=== PATIENT | female | born 1990 | race Caucasian/White ===

== ENCOUNTER 2018-11-20 16:38 | Emergency (ER) | payer MEDICAID ==
[~2018-11-20] VITALS: Ht 175.3 cm; Wt 78.0 kg
[2018-11-20 16:44] VITALS: BP 127/72
[2018-11-20] MEDS ORDERED: ONDANSETRON HCL 4 MG/5 ML SOLUTION PO ONE (17:30)
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
[2018-11-20] MEDS ORDERED: ONDANSETRON HCL 4 MG/5 ML SOLUTION ONE (17:54)
== END 2018-11-20 18:10 | disposition home or self-care (01) ==
LOC: ER 16:39
DX: S00.01XA Abrasion of scalp, initial encounter (principal); F17.200 Nicotine dependence, unspecified, uncomplicated; Y08.89XA Assault by other specified means, initial encounter; Y93.89 Activity, other specified; Y92.89 Other specified places as the place of occurrence of the external cause; Y99.8 Other external cause status
CPT/HCPCS: A6403; Q0162